=== PATIENT | male | born 1950 | race Caucasian/White ===

== ENCOUNTER 2017-09-19 12:51 | Inpatient (IN) | payer MEDICARE, MEDICAID ==
[2017-09-19 13:27] VITALS: BP 118/74
[2017-09-19] MEDS ORDERED: Maalox 30 mL Cup PO PRN (14:05)
[2017-09-19] MEDS ORDERED: Magnesium Hydroxide (MOM) 30 mL UDC PO PRN (14:05)
[2017-09-19] MEDS: INSULIN ASPART SLIDING SCALE 100 UNITS/ML UNIT SUBQ SCH ×2 (16:41→21:00)
[2017-09-19] MEDS: Multivitamin Tab PO SCH (17:44)
[2017-09-19 19:31] LABS: A1C % 11.7 % (4.0-6.0)
[2017-09-19] MEDS: Insulin Detemir 100 units/mL 10mL Vial SUBQ SCH (21:00)
[2017-09-19] MEDS: Atorvastatin Calcium 10 MG TAB PO SCH (21:34)
[2017-09-20] MEDS: INSULIN ASPART SLIDING SCALE 100 UNITS/ML UNIT SUBQ SCH ×4 (06:35→21:00)
[2017-09-20] MEDS: Levothyroxine 0.025 Mg Tab PO SCH (06:38)
--- NOTE | 2017-09-20 07:17 | Psychosocial Evaluation ---
DATE OF SERVICE: 09/19/2017 AGE: 66. SEX: Male. PHYSICIAN: Dr. Browning. CHIEF COMPLAINT: [id number] hold for dangerous to self. HISTORY OF PRESENT ILLNESS: The patient is status 66-year-old male who called 911 telling them that he is feeling suicidal and he overdosed on pills. Chart reviewed and patient interviewed. Also, discussed the patient's condition with the staff and reviewed records and labs. The patient admitted that he did take "Flagyl," unknown amount. The patient said that has been feeling hopeless and helpless and has been feeling lonely. The patient's is in the retirement for the last 2.5 years. He has been living alone since then. He is since 1998 and he has no children. The patient also is retired. The patient has history of bipolar disorder, but he denies any history of suicidal attempt, but he did have suicidal ideations in the past and he was hospitalized multiple times for treatment of bipolar disorder. The patient denies any drugs or any alcohol use. PAST PSYCHIATRIC HISTORY: The patient has a history of bipolar disorder with multiple psychiatric hospitalizations. The patient currently is taking Prozac. PAST MEDICAL HISTORY: The patient is insulin-dependent diabetic. Also, has COPD, hypertension, and arthritis, especially on his left shoulder and arm. FAMILY PSYCHIATRIC HISTORY: The patient is adopted and he does not know much about his biological family. SOCIAL HISTORY: The patient lives by himself. 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 He denies smoking cigarettes, drinking alcohol or using any street drugs. He denies any legal issues. He denies any history of sexual or physical abuse. ALLERGIES: PENICILLIN and GEMFIBROZIL. MENTAL STATUS EXAMINATION: The patient appears his stated age. Calm. Cooperative. Sad affect. In a depressed mood. Low tone and rate of speech. Poor eye contact. The patient denies any auditory or visual hallucinations, but seems to be slightly paranoid. The patient also occasionally talking to himself. The patient denies any current suicidal or homicidal ideations, although he admitted to overdose on pills. The patient is alert and oriented to time, place, person, and situation. Intact immediate, recent and remote memories. Fair insight. Poor judgment. He seems to be of average intelligence based on his verbal ability. ASSESSMENT: PRIMARY DIAGNOSIS: Bipolar disorder, severe, depressed episode, with psychotic features. MEDICAL DIAGNOSES: 1. Insulin-dependent diabetes mellitus. 2. Hypertension. 3. Chronic obstructive pulmonary disease. 4. Arthritis. TREATMENT PLAN: We will monitor the patient's behavior closely. We will continue Prozac and we will add Abilify and we will monitor the dose. ESTIMATED LENGTH OF STAY: 5-7 days. THE PATIENT'S STRENGTHS AND WEAKNESSES: The patient's strength is not clear at this time. Weaknesses is his ineffective coping. AFTER DISCHARGE PLAN: The patient will return to live with his place and outpatient treatment and followup will continue as an outpatient. CRITERIA FOR DISCHARGE: The patient will not be depressed or suicidal and will stabilize psychotropic medications and will establish outpatient treatment plans. [facility]# [id number]
--- NOTE | 2017-09-20 08:08 | Diagnostic Imaging Report ---
Portable chest x-ray HISTORY: Pain The overall heart size is normal. Atherosclerotic calcification seen in the aortic arch. No acute focal pulmonary processes. IMPRESSION: 1. No acute abnormalities 2. Atherosclerotic vascular changes
[2017-09-20] MEDS: Multivitamin Tab PO SCH (10:51)
[2017-09-20] MEDS: Atorvastatin Calcium 10 MG TAB PO SCH (22:00)
[2017-09-21] MEDS: Insulin Detemir 100 units/mL 10mL Vial SUBQ SCH ×2 (06:18→22:00)
[2017-09-21] MEDS: Levothyroxine 0.025 Mg Tab PO SCH (06:32)
[2017-09-21] MEDS: Multivitamin Tab PO SCH (10:11)
[2017-09-21] MEDS: INSULIN ASPART SLIDING SCALE 100 UNITS/ML UNIT SUBQ SCH ×3 (12:55→21:59)
--- NOTE | 2017-09-21 18:54 | Progress Notes ---
DATE: 09/21/2017 PSYCHIATRIC PROGRESS NOTE Chart reviewed and the patient interviewed. Also discussed the patient's condition with the staff and reviewed records and labs. The patient is still depressed. The patient also is still isolative and withdrawn. The patient also is guarded. He is still feeling lonely and he is still depressed, also slightly suspicious and paranoid. Otherwise, the patient is compliant with taking his medications and started to take Lexapro and Abilify yesterday. ASSESSMENT: The patient is still depressed. TREATMENT PLAN: We will continue monitoring his condition and behavior and working on his ineffective coping and follow up closely. [facility]# [id number]
[2017-09-21] MEDS: Atorvastatin Calcium 10 MG TAB PO SCH (22:00)
[2017-09-22] MEDS: INSULIN ASPART SLIDING SCALE 100 UNITS/ML UNIT SUBQ SCH ×3 (06:45→21:06)
[2017-09-22] MEDS: Levothyroxine 0.025 Mg Tab PO SCH (06:45)
[2017-09-22] MEDS: Multivitamin Tab PO SCH (09:59)
--- NOTE | 2017-09-22 11:31 | General Progress Note ---
Subjective - Review of Systems Events since last encounter: still depressed withdrawn denies pain Objective - Results Recent Labs: Laboratory Last Values POC Glucose 123 MG/DL (70 - 105) H 09/22/17 06:09 Hemoglobin A1c % 11.7 % (4.0-6.0) H 09/19/17 15:50 TSH 4.42 uIU/ml (0.34-5.60) 09/19/17 15:50 RPR NONREACTIVE (NONREACTIVE) 09/19/17 15:50 - Physical Exam Vitals and I&O: Vital Signs Temp 97.1 F 09/22/17 06:58 Pulse 72 09/22/17 09:59 Resp 20 09/22/17 06:58 BP 136/78 09/22/17 09:59 Pulse Ox 98 09/22/17 06:58 Intake & Output 09/21/17 09/22/17 09/22/17 18:59 06:59 18:59 Intake Total 120 120 Balance 120 120 Intake: Oral 120 120 Other: # Voids 2 2 # Bowel Movements 0 Stool Characteristics Soft Soft Active Medications: Current Medications Acetaminophen (Tylenol) 650 mg PO Q4HR PRN PRN Reason: Mild Pain / Temp above 100 Stop: 11/18/17 14:04 Al Hydrox/Mg Hydrox/Simethicone (Maalox) 30 ml PO Q4H PRN PRN Reason: GI DISTRESS Stop: 11/18/17 14:04 Aripiprazole (Abilify) 5 mg PO DAILY GAGE PRN Reason: Protocol Stop: 11/19/17 13:59 Last Admin: 09/22/17 09:59 Dose: 5 mg Aspirin (Ecotrin) 81 mg PO DAILY GAGE Stop: 11/19/17 08:59 Last Admin: 09/22/17 09:59 Dose: 81 mg Atorvastatin Calcium (Lipitor) 10 mg PO HS GAGE PRN Reason: Protocol Stop: 11/18/17 20:59 Last Admin: 09/21/17 22:00 Dose: 10 mg Carvedilol (Coreg) 3.125 mg PO BID GAGE Stop: 11/18/17 16:59 Last Admin: 09/22/17 09:59 Dose: 3.125 mg Fluoxetine HCl (Prozac) 20 mg PO DAILY GAGE PRN Reason: Protocol Stop: 11/19/17 08:59 Last Admin: 09/22/17 09:56 Dose: 20 mg Insulin Aspart (Novolog Insulin Sliding Scale) 0 units SUBQ ACHS GAGE PRN Reason: Protocol Stop: 11/18/17 16:29 Last Admin: 09/22/17 06:45 Dose: Not Given Insulin Detemir (Levemir Insulin) 30 units SUBQ HS GAGE Stop: 11/18/17 20:59 Last Admin: 09/21/17 22:00 Dose: 30 unit Levothyroxine Sodium (Synthroid) 0.05 mg PO QDAC GAGE Stop: 11/19/17 07:29 Last Admin: 09/22/17 06:45 Dose: 0.05 mg Lisinopril (Zestril) 10 mg PO BID GAGE Stop: 11/18/17 16:59 Last Admin: 09/22/17 09:56 Dose: 10 mg Lorazepam (Ativan) 0.5 mg PO Q4H PRN; Protocol PRN Reason: Anxiety Stop: 11/18/17 14:04 Last Admin: 09/21/17 12:55 Dose: 0.5 mg Magnesium Hydroxide (Milk Of Magnesia) 30 ml PO HS PRN PRN Reason: Constipation Multivitamins/Vitamin C (Theragran) 1 tab PO DAILY [facility] Stop: 11/18/17 14:59 Last Admin: 09/22/17 09:59 Dose: 1 tab Zolpidem Tartrate (Ambien) 5 mg PO HS PRN PRN Reason: Insomnia Stop: 11/18/17 20:59 Nutritional Asmnt/Malnutr-PDOC - Dietary Evaluation Malnutrition Findings (Please click <Entered> for more info): Nutritional Asmnt/Malnutrition Start: 09/20/17 12: 18 Text: Status: Active Freq: Document 09/20/17 12:18 [email or web address] (Rec: 09/20/17 12:27 [email or web address]) Nutritional Asmnt/Malnutrition Patient General Information Nutritional Screening Consult Diagnosis depression Pertinent Medical Hx/Surgical Hx bipolar, DM, COPD, HTN, arthritis Subjective Information Consult for DM. Pt depressed and confused. No meal intake since admit recorded. Current Diet Order/ Nutrition Support CCHO 60 gm Pertinent Medications insulin, synthroid, MOM, MVI Pertinent Labs glucose: 161-407, hgba1c: 11.7 Nutritional Hx/Data Height 1.68 m Height (Calculated Centimeters) 167.6 Current Weight (lbs) 77.111 kg Weight (Calculated Kilograms) 77.1 Weight (Calculated Grams) 13800.7 [place] Body Weight 142 lbs % [place] Body Weight 120 Body Mass Index (BMI) 27.4 Weight Status Overweight GI Symptoms GI Symptoms None Last BM [employer] Difficult in: None Skin Integrity/Comment: intact, no edema noted Estimated Nutritional Goals BEE in Kcals: Using Current wt Calories/Kcals/Kg 25-30 Kcals Calculated 0140-5196 Protein: Using Current wt Protein g/k-1.2 Protein Calculated 77-92 g Fluid: ml 8664-7838 mL (1 ml/kcal) Nutritional Problem 1. Problem Problem altered nutrition related lab values Etiology DM Signs/Symptoms: hgba1c: 11.7, POC glucose: 161 -407 Malnutrition Alert Is there a minimum of two criteria No selected? Query Text:Check all the applicable criteria. A minimum of two criteria are recommended for diagnosis of either severe or non-severe malnutrition. Malnutrition Related to Morbid Obesity Malnutrition related to morbid obesity No Intervention/Recommendation Recommendations by RD Dietary Education by RD1 Comments 1. Continue CCHO 60 gm diet for optimal glycemic control 2. Provide DM diet ed when pt more mentally appropriate Expected Outcomes/Goals Expected Outcomes/Goals goals: PO intake >50%, glucose : WNL monitor wt, labs, skin, PO intake, pt's readiness for diet ed
[2017-09-22] MEDS: Atorvastatin Calcium 10 MG TAB PO SCH (20:58)
[2017-09-22] MEDS: Insulin Detemir 100 units/mL 10mL Vial SUBQ SCH (21:08)
--- NOTE | 2017-09-22 22:09 | Progress Notes ---
DATE: 09/22/2017 SUBJECTIVE: Chart reviewed and the patient interviewed. Also discussed the patient's condition with the staff and reviewed records and labs. The patient remains in a depressed mood. The patient also is suspicious and paranoid. Also is still withdrawn, also did not sleep much, had only slept 5 hours. Also, continue to feel lonely. Otherwise, the patient is cooperative with treatment and compliant with treatment plans. ASSESSMENT: The patient is still depressed and high risk of suicide. TREATMENT PLAN: Continue to monitor his behavior and his condition closely. Also, continue working on his ineffective coping and discharge plans. Also, continue adjusting antidepressant medications. [facility]# [id number]
[2017-09-23] MEDS: Levothyroxine 0.025 Mg Tab PO SCH (06:40)
[2017-09-23] MEDS: INSULIN ASPART SLIDING SCALE 100 UNITS/ML UNIT SUBQ SCH ×4 (06:43→21:17)
--- NOTE | 2017-09-23 09:07 | Progress Notes ---
DATE: SUBJECTIVE: Chart reviewed and the patient interviewed. Also discussed the patient's condition with the staff and reviewed records and labs. The patient is anxious and is still depressed. Also, has difficulty sleeping at night and he is waking up in the middle of the night. He denies any bad dreams or nightmares. He still reports feeling depressed and is still feeling hopeless at times. Also, is isolative and seems to be preoccupied. Otherwise, the patient continued to take Prozac with no side effects. ASSESSMENT: The patient is still depressed. TREATMENT PLAN: We will continue to monitor his behavior and his condition closely. Also, we will increase Prozac to 40 mg every day and also will give trazodone in a dose of 50 mg at bedtime and continue to follow up his condition and continue to work on his ineffective coping. ESTIMATED LENGTH OF STAY: 2-4 days. LABS: No new labs available for review. REASON TO CONTINUE HOSPITAL STAY: The patient is still severely depressed and high risk suicide. [facility]# [id number]
[2017-09-23] MEDS: Multivitamin Tab PO SCH (11:10)
--- NOTE | 2017-09-23 13:24 | History and Physical ---
History of Present Illness - HPI Chief Complaint: AGITATION HPI: THIS IS A 67 YEAR OLD MALE WHO IS ADMITTED TO THE GEROPSYCH UNIT DUE TO DANGER TO SELF. Vital Signs: Last Vital Signs Temp 97.3 F 09/23/17 06:21 Pulse 68 09/23/17 11:09 Resp 18 09/23/17 06:21 BP 130/85 09/23/17 11:09 Pulse Ox 94 09/23/17 06:21 Past Medical History Other History: INSULIN DEPENDENT DIABETES MELLITUS HTN COPD ARTHRITIS Social History Smoke: 1 pack per day Alcohol: None Drugs: None Lives: Alone - Medications Home Medications: Home Medication Medication Instructions Recorded Type Aspirin [Adult Low Dose Aspirin EC] 81 mg PO DAILY 09/19/17 History Atorvastatin Calcium [Lipitor] 10 mg PO HS 09/19/17 History Carvedilol [Coreg] 3.125 mg PO BID 09/19/17 History Fluoxetine HCl [Prozac] 20 mg PO DAILY 09/19/17 History Insulin Glargine, Recombinan 30 units SUBQ HS 09/19/17 History [Lantus] Levothyroxine Sodium [Synthroid] 50 mcg PO AC 09/19/17 History Lisinopril 10 mg PO BID 09/19/17 History Memantine [Namenda] 5 mg PO BID 09/19/17 History - Allergies Allergies/Adverse Reactions: Allergies Allergy/AdvReac Type Severity Reaction Status Date / Time gemfibrozil Allergy Verified 09/19/17 13:26 Penicillins Allergy Verified 09/19/17 13:26 Review of Systems - Review of Systems Constitutional: Report: No Significant Eyes: Report: No Significant ENT: Report: No Significant Respiratory: Report: No Significant Cardiovascular: Report: No Significant Gastrointestinal: Report: No Significant Genitourinary: Report: No Significant Musculoskeletal: Report: No Significant Skin: Report: No Significant Neurological: Report: No Significant Physical Exam - Physical Exam HEENT: Report: Ears Nose Throat within normal limits Neck: Report: Within normal limits Cardiovascular Systems: Report: +s1/s2 noted, Regular, Rate and Rhythm Respiratory: Report: Breath Sounds are within normal limits Abdomen: Report: Non-tender to palpation Back: Report: Inspection of back is within normal limits. Extremities: Report: Non-tender to palpation. Skin: Report: Color of skin is within normal limits Neuro/Psych: Report: Mood affect is within normal limits - Lab Results All Lab Results last 24 hours: Laboratory Results - last 24 hr 09/22/17 09/22/17 09/23/17 17:20 20:29 06:28 POC Glucose 184 H 305 H 97 09/23/17 11:27 POC Glucose 316 H - Assessment Assessment: INSULIN DEPENDENT DIABETES MELLITUS HTN COPD ARTHRITIS - Plan Plan: ACCUCHECK AC+HS SLIDING SCALE PER PROTOCOL CONTINUE CURRENT PLAN OF CARE
[2017-09-23] MEDS: Insulin Detemir 100 units/mL 10mL Vial SUBQ SCH (21:16)
[2017-09-23] MEDS: Atorvastatin Calcium 10 MG TAB PO SCH (21:16)
[2017-09-24] MEDS: Levothyroxine 0.025 Mg Tab PO SCH (06:33)
[2017-09-24] MEDS: INSULIN ASPART SLIDING SCALE 100 UNITS/ML UNIT SUBQ SCH ×4 (06:34→20:36)
[2017-09-24] MEDS: Multivitamin Tab PO SCH (09:41)
--- NOTE | 2017-09-24 18:39 | Progress Notes ---
DATE: 09/24/2017 SUBJECTIVE: The patient was seen in his room. The patient appears to be paranoid, appears to be guarded. Denies any hallucination. Otherwise, the patient appears to be in no acute distress. OBJECTIVE: VITAL SIGNS: Temperature 97, heart rate of 98, blood pressure 134/67, respirations 20, and 99% on room air. HEENT: Head is atraumatic and normocephalic. Eyes: Bilateral conjunctivae are clear. Bilateral pupils are equally round and reactive. NECK: Supple. No JVD. CARDIOVASCULAR: S1 and S2, without murmur. PULMONARY: Clear to auscultation. GASTROINTESTINAL: Soft and nontender without guarding. Positive bowel sounds. MUSCULOSKELETAL: No clubbing. No cyanosis noted. ASSESSMENT: 1. Bipolar disorder. 2. Diabetes mellitus. 3. Hypertension. 4. Osteoarthritis. 5. Chronic obstructive pulmonary disease. PLAN: We will keep the patient inpatient Psychiatric Unit. We will follow up with the psychiatrist to monitor the patient's condition and behavior. Treatment plans were discussed with the patient's nurse. Treatment plans were discussed with Dr. Rahman. [facility]# [id number]
--- NOTE | 2017-09-24 20:15 | Progress Notes ---
DATE: The patient was seen and evaluated. The patient's chart reviewed. This is Dr. Valencia covering for Dr. Browning. He is a 67-year-old male who was brought in here after the patient reported feeling suicidal and he overdosed on pills. Over the course of the hospitalization, the patient still continues to be noted very depressed, isolative, withdrawn. Today on [id number] evaluation, the patient reports he is feeling very overwhelmed and very depressed with suicidal ideation. MENTAL: Psych. ASSESSMENT AND PLAN: The patient is a 67-year-old male likely terminal, distraught, overwhelmed. We will continue with Abilify 5 mg a day and Prozac 40 mg to target the patient's severe melancholic state, especially with recent suicide attempt. [facility]# [id number]
[2017-09-24] MEDS: Atorvastatin Calcium 10 MG TAB PO SCH (20:45)
[2017-09-24] MEDS: Insulin Detemir 100 units/mL 10mL Vial SUBQ SCH (20:50)
[2017-09-25] MEDS: Levothyroxine 0.025 Mg Tab PO SCH (06:37)
[2017-09-25] MEDS: INSULIN ASPART SLIDING SCALE 100 UNITS/ML UNIT SUBQ SCH ×3 (06:37→21:00)
--- NOTE | 2017-09-25 08:49 | General Progress Note ---
Subjective - Review of Systems Events since last encounter: patient seen and examined patient is anxious , confused in no distress Objective - Results Recent Labs: Laboratory Last Values POC Glucose 139 MG/DL (70 - 105) H 09/25/17 06:08 Hemoglobin A1c % 11.7 % (4.0-6.0) H 09/19/17 15:50 TSH 4.42 uIU/ml (0.34-5.60) 09/19/17 15:50 RPR NONREACTIVE (NONREACTIVE) 09/19/17 15:50 - Physical Exam Vitals and I&O: Vital Signs Temp 98.0 F 09/24/17 16:38 Pulse 81 09/24/17 16:55 Resp 20 09/24/17 16:38 BP 128/88 09/24/17 16:55 Pulse Ox 98 09/24/17 16:38 Intake & Output 09/24/17 09/25/17 09/25/17 18:59 06:59 18:59 Intake Total 800 Balance 800 Intake: Oral 800 Other: # Voids 3 # Bowel Movements 1 Stool Characteristics Soft Soft Active Medications: Current Medications Acetaminophen (Tylenol) 650 mg PO Q4HR PRN PRN Reason: Mild Pain / Temp above 100 Stop: 11/18/17 14:04 Last Admin: 09/24/17 16:54 Dose: 650 mg Al Hydrox/Mg Hydrox/Simethicone (Maalox) 30 ml PO Q4H PRN PRN Reason: GI DISTRESS Stop: 11/18/17 14:04 Aripiprazole (Abilify) 5 mg PO DAILY GAGE PRN Reason: Protocol Stop: 11/19/17 13:59 Last Admin: 09/24/17 09:40 Dose: 5 mg Aspirin (Ecotrin) 81 mg PO DAILY GAGE Stop: 11/19/17 08:59 Last Admin: 09/24/17 09:41 Dose: 81 mg Atorvastatin Calcium (Lipitor) 10 mg PO HS GAGE PRN Reason: Protocol Stop: 11/18/17 20:59 Last Admin: 09/24/17 20:45 Dose: 10 mg Carvedilol (Coreg) 3.125 mg PO BID GAGE Stop: 11/18/17 16:59 Last Admin: 09/24/17 16:55 Dose: 3.125 mg Fluoxetine HCl (Prozac) 40 mg PO DAILY GAGE PRN Reason: Protocol Stop: 11/22/17 07:14 Last Admin: 09/24/17 09:40 Dose: 40 mg Insulin Aspart (Novolog Insulin Sliding Scale) 0 units SUBQ ACHS GAGE PRN Reason: Protocol Stop: 11/18/17 16:29 Last Admin: 09/25/17 06:37 Dose: Not Given Insulin Detemir (Levemir Insulin) 30 units SUBQ HS GAGE Stop: 11/18/17 20:59 Last Admin: 09/24/17 20:50 Dose: 30 units Levothyroxine Sodium (Synthroid) 0.05 mg PO QDAC GAGE Stop: 11/19/17 07:29 Last Admin: 09/25/17 06:37 Dose: 0.05 mg Lisinopril (Zestril) 10 mg PO BID GAGE Stop: 11/18/17 16:59 Last Admin: 09/24/17 16:55 Dose: 10 mg Lorazepam (Ativan) 0.5 mg PO Q4H PRN; Protocol PRN Reason: Anxiety Stop: 11/18/17 14:04 Last Admin: 09/24/17 20:46 Dose: 0.5 mg Magnesium Hydroxide (Milk Of Magnesia) 30 ml PO HS PRN PRN Reason: Constipation Multivitamins/Vitamin C (Theragran) 1 tab PO DAILY GAGE Stop: 11/18/17 14:59 Last Admin: 09/24/17 09:41 Dose: 1 tab Trazodone HCl (Desyrel) 50 mg PO HS GAGE PRN Reason: Protocol Stop: 11/22/17 20:59 Last Admin: 09/24/17 20:52 Dose: 50 mg Zolpidem Tartrate (Ambien) 5 mg PO HS PRN PRN Reason: Insomnia Stop: 11/18/17 20:59 Last Admin: 09/24/17 20:47 Dose: 5 mg Nutritional Asmnt/Malnutr-PDOC - Dietary Evaluation Malnutrition Findings (Please click <Entered> for more info): Nutritional Asmnt/Malnutrition Start: 09/20/17 12: 18 Text: Status: Active Freq: Document 09/20/17 12:18 [email or web address] (Rec: 09/20/17 12:27 [email or web address]) Nutritional Asmnt/Malnutrition Patient General Information Nutritional Screening Consult Diagnosis depression Pertinent Medical Hx/Surgical Hx bipolar, DM, COPD, HTN, arthritis Subjective Information Consult for DM. Pt depressed and confused. No meal intake since admit recorded. Current Diet Order/ Nutrition Support CCHO 60 gm Pertinent Medications insulin, synthroid, MOM, MVI Pertinent Labs glucose: 161-407, hgba1c: 11.7 Nutritional Hx/Data Height 1.68 m Height (Calculated Centimeters) 167.6 Current Weight (lbs) 77.111 kg Weight (Calculated Kilograms) 77.1 Weight (Calculated Grams) 20320.7 [place] Body Weight 142 lbs % [place] Body Weight 120 Body Mass Index (BMI) 27.4 Weight Status Overweight GI Symptoms GI Symptoms None Last BM [employer] Difficult in: None Skin Integrity/Comment: intact, no edema noted Estimated Nutritional Goals BEE in Kcals: Using Current wt Calories/Kcals/Kg 25-30 Kcals Calculated 6080-8160 Protein: Using Current wt Protein g/k-1.2 Protein Calculated 77-92 g Fluid: ml 2709-3246 mL (1 ml/kcal) Nutritional Problem 1. Problem Problem altered nutrition related lab values Etiology DM Signs/Symptoms: hgba1c: 11.7, POC glucose: 161 -407 Malnutrition Alert Is there a minimum of two criteria No selected? Query Text:Check all the applicable criteria. A minimum of two criteria are recommended for diagnosis of either severe or non-severe malnutrition. Malnutrition Related to Morbid Obesity Malnutrition related to morbid obesity No Intervention/Recommendation Recommendations by RD Dietary Education by RD1 Comments 1. Continue CCHO 60 gm diet for optimal glycemic control 2. Provide DM diet ed when pt more mentally appropriate Expected Outcomes/Goals Expected Outcomes/Goals goals: PO intake >50%, glucose : WNL monitor wt, labs, skin, PO intake, pt's readiness for diet ed
[2017-09-25] MEDS: Multivitamin Tab PO SCH (09:18)
--- NOTE | 2017-09-25 19:14 | Progress Notes ---
DATE: SUBJECTIVE: The patient was seen and evaluated. The patient's chart reviewed. Today on [id number] evaluation, the patient reports that the depressive feelings tend to be little bit less intense and there are thoughts about hurting himself are also less and intermittent. MENTAL STATUS EXAMINATION: Less depressed, less anxious with intermittent SI with no improvement. ASSESSMENT AND PLAN: This is a 67-year-old male who continues to feel very psychologically distraught. We will continue with the recent addition of Abilify to his current doses of Prozac to target the patient's severe depression. [facility]# [id number]
[2017-09-25] MEDS: Insulin Detemir 100 units/mL 10mL Vial SUBQ SCH (21:00)
[2017-09-25] MEDS: Atorvastatin Calcium 10 MG TAB PO SCH (21:23)
[2017-09-26] MEDS: INSULIN ASPART SLIDING SCALE 100 UNITS/ML UNIT SUBQ SCH ×5 (06:38→21:39)
[2017-09-26] MEDS: Levothyroxine 0.025 Mg Tab PO SCH (06:39)
[2017-09-26] MEDS: Multivitamin Tab PO SCH (08:23)
--- NOTE | 2017-09-26 12:41 | Internal Medicine Prog Note ---
Internal Medicine Subjective - Subjective Service Date: 09/26/17 Patient seen and examined:: with staff Patient is:: awake, verbal Per staff patient has:: tolerating meds Internal Medicine Objective - Results Recent Labs: Laboratory Last Values POC Glucose 162 MG/DL (70 - 105) H 09/26/17 11:58 Hemoglobin A1c % 11.7 % (4.0-6.0) H 09/19/17 15:50 TSH 4.42 uIU/ml (0.34-5.60) 09/19/17 15:50 RPR NONREACTIVE (NONREACTIVE) 09/19/17 15:50 - Physical Exam Vitals and I&O: Vital Signs Temp 99.1 F 09/26/17 06:18 Pulse 83 09/26/17 08:24 Resp 18 09/26/17 06:18 BP 109/63 09/26/17 08:24 Pulse Ox 97 09/26/17 06:18 Intake & Output 09/25/17 09/26/17 09/26/17 18:59 06:59 18:59 Intake Total 1200 480 Balance 1200 480 Intake: Oral 1200 480 Other: # Voids 4 1 # Bowel Movements 1 Active Medications: Current Medications Acetaminophen (Tylenol) 650 mg PO Q4HR PRN PRN Reason: Mild Pain / Temp above 100 Stop: 11/18/17 14:04 Last Admin: 09/24/17 16:54 Dose: 650 mg Al Hydrox/Mg Hydrox/Simethicone (Maalox) 30 ml PO Q4H PRN PRN Reason: GI DISTRESS Stop: 11/18/17 14:04 Aripiprazole (Abilify) 5 mg PO DAILY [facility] PRN Reason: Protocol Stop: 11/19/17 13:59 Last Admin: 09/26/17 08:23 Dose: 5 mg Aspirin (Ecotrin) 81 mg PO DAILY [facility] Stop: 11/19/17 08:59 Last Admin: 09/26/17 08:23 Dose: 81 mg Atorvastatin Calcium (Lipitor) 10 mg PO HS [facility] PRN Reason: Protocol Stop: 11/18/17 20:59 Last Admin: 09/25/17 21:23 Dose: 10 mg Carvedilol (Coreg) 3.125 mg PO BID [facility] Stop: 11/18/17 16:59 Last Admin: 09/26/17 08:24 Dose: Not Given Fluoxetine HCl (Prozac) 40 mg PO DAILY [facility] PRN Reason: Protocol Stop: 11/22/17 07:14 Last Admin: 09/26/17 08:23 Dose: 40 mg Insulin Aspart (Novolog Insulin Sliding Scale) 0 units SUBQ ACHS [facility] PRN Reason: Protocol Stop: 11/18/17 16:29 Last Admin: 09/26/17 12:12 Dose: 2 units Insulin Detemir (Levemir Insulin) 30 units SUBQ HS [facility] Stop: 11/18/17 20:59 Last Admin: 09/25/17 21:00 Dose: 30 units Levothyroxine Sodium (Synthroid) 0.05 mg PO QDAC [facility] Stop: 11/19/17 07:29 Last Admin: 09/26/17 06:39 Dose: 0.05 mg Lisinopril (Zestril) 10 mg PO BID [facility] Stop: 11/18/17 16:59 Last Admin: 09/26/17 08:24 Dose: Not Given Lorazepam (Ativan) 0.5 mg PO Q4H PRN; Protocol PRN Reason: Anxiety Stop: 11/18/17 14:04 Last Admin: 09/24/17 20:46 Dose: 0.5 mg Magnesium Hydroxide (Milk Of Magnesia) 30 ml PO HS PRN PRN Reason: Constipation Multivitamins/Vitamin C (Theragran) 1 tab PO DAILY [facility] Stop: 11/18/17 14:59 Last Admin: 09/26/17 08:23 Dose: 1 tab Trazodone HCl (Desyrel) 50 mg PO HS [facility] PRN Reason: Protocol Stop: 11/22/17 20:59 Last Admin: 09/25/17 21:23 Dose: 50 mg Zolpidem Tartrate (Ambien) 5 mg PO HS PRN PRN Reason: Insomnia Stop: 11/18/17 20:59 Last Admin: 09/24/17 20:47 Dose: 5 mg General: weak, alert HEENT: NC/AT, PERRLA Neck: Supple Cardiovascular: RRR, Normal S1, Normal S2, without murmur Abdomen: soft, non-tender, non-distended, positive bowel sound Internal Medicine Assmt/Plan - Assessment Assessment: INSULIN DEPENDENT DIABETES MELLITUS HTN COPD ARTHRITIS - Plan Plan: SLIDING SCALE PER PROTOCOL CONTINUE CURRENT PLAN OF CARE Nutritional Asmnt/Malnutr-PDOC - Dietary Evaluation Malnutrition Findings (Please click <Entered> for more info): Nutritional Asmnt/Malnutrition Start: 09/20/17 12: 18 Text: Status: Active Freq: Document 09/20/17 12:18 [email or web address] (Rec: 09/20/17 12:27 [email or web address]) Nutritional Asmnt/Malnutrition Patient General Information Nutritional Screening Consult Diagnosis depression Pertinent Medical Hx/Surgical Hx bipolar, DM, COPD, HTN, arthritis Subjective Information Consult for DM. Pt depressed and confused. No meal intake since admit recorded. 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 Problem Problem altered nutrition related lab values Etiology DM Signs/Symptoms: hgba1c: 11.7, POC glucose: 161 -407 Malnutrition Alert Is there a minimum of two criteria No selected? Query Text:Check all the applicable criteria. A minimum of two criteria are recommended for diagnosis of either severe or non-severe malnutrition. Malnutrition Related to Morbid Obesity Malnutrition related to morbid obesity No Intervention/Recommendation Recommendations by RD Dietary Education by RD1 Comments 1. Continue CCHO 60 gm diet for optimal glycemic control 2. Provide DM diet ed when pt more mentally appropriate Expected Outcomes/Goals Expected Outcomes/Goals goals: PO intake >50%, glucose : WNL monitor wt, labs, skin, PO intake, pt's readiness for diet ed
[2017-09-26] MEDS: Atorvastatin Calcium 10 MG TAB PO SCH (21:27)
[2017-09-26] MEDS: Insulin Detemir 100 units/mL 10mL Vial SUBQ SCH (21:39)
--- NOTE | 2017-09-26 23:34 | Progress Notes ---
DATE: 09/26/[address] Browning. SUBJECTIVE: Case was discussed with staff of the patient, reviewed records. This is a 67-year-old male who was admitted on 09/19/2017. He called 911 telling them that he was feeling suicidal and he overdosed on pills. He overdosed on Flagyl, unknown amount. He said he is being feeling hopeless and helpless and has been feeling lonely. is in the [facility] for the past 2-1/2 years. He has been living alone since then. He is since 1998, has no children. He is retired. The patient with a history of bipolar disorder. He denies prior suicide attempts, but did have suicidal ideation in the past and he was hospitalized multiple times for treatment of bipolar disorder. Denies any substance abuse problem. The patient has been compliant with the medication with no side effect. The patient continues to be depressed, overwhelmed. He is on Prozac 40 mg a day and Abilify 5 mg daily with no side effects, no sedation, no nausea, no extrapyramidal symptoms. He continues to have thoughts of wanting to harm himself, but they are now intermittent and less intense. He is able to contract for safety while in the hospital. No side effects with the medication, no sedation, no nausea, no extrapyramidal symptoms. We will continue the patient in group therapy, milieu therapy and adjust the medication as needed. JOB# [id number]
[2017-09-27] MEDS: Levothyroxine 0.05 Mg Tab PO SCH (06:33)
[2017-09-27] MEDS: INSULIN ASPART SLIDING SCALE 100 UNITS/ML UNIT SUBQ SCH ×4 (06:33→21:36)
[2017-09-27] MEDS: Multivitamin Tab PO SCH (08:57)
--- NOTE | 2017-09-27 15:15 | Internal Medicine Prog Note ---
Internal Medicine Subjective - Subjective Service Date: 09/27/17 Patient is:: awake, verbal Per staff patient has:: tolerating meds Internal Medicine Objective - Results Recent Labs: Laboratory Last Values POC Glucose 193 MG/DL (70 - 105) H 09/27/17 11:46 Hemoglobin A1c % 11.7 % (4.0-6.0) H 09/19/17 15:50 TSH 4.42 uIU/ml (0.34-5.60) 09/19/17 15:50 RPR NONREACTIVE (NONREACTIVE) 09/19/17 15:50 - Physical Exam Vitals and I&O: Vital Signs Temp 96.8 F 09/27/17 06:31 Pulse 68 09/27/17 06:31 Resp 18 09/27/17 06:31 BP 135/84 09/27/17 06:31 Pulse Ox 97 09/27/17 06:31 Intake & Output 09/26/17 09/27/17 09/27/17 18:59 06:59 18:59 Intake Total 1000 240 Balance 1000 240 Intake: Oral 1000 240 Other: # Voids 4 3 # Bowel Movements 1 0 Stool Characteristics Soft Active Medications: Current Medications Acetaminophen (Tylenol) 650 mg PO Q4HR PRN PRN Reason: Mild Pain / Temp above 100 Stop: 11/18/17 14:04 Last Admin: 09/24/17 16:54 Dose: 650 mg Al Hydrox/Mg Hydrox/Simethicone (Maalox) 30 ml PO Q4H PRN PRN Reason: GI DISTRESS Stop: 11/18/17 14:04 Aripiprazole (Abilify) 5 mg PO DAILY [facility] PRN Reason: Protocol Stop: 11/19/17 13:59 Last Admin: 09/27/17 08:57 Dose: 5 mg Aspirin (Ecotrin) 81 mg PO DAILY [facility] Stop: 11/19/17 08:59 Last Admin: 09/27/17 08:57 Dose: 81 mg Atorvastatin Calcium (Lipitor) 10 mg PO HS [facility] PRN Reason: Protocol Stop: 11/18/17 20:59 Last Admin: 09/26/17 21:27 Dose: 10 mg Carvedilol (Coreg) 3.125 mg PO BID [facility] Stop: 11/18/17 16:59 Last Admin: 09/27/17 08:57 Dose: Not Given Fluoxetine HCl (Prozac) 40 mg PO DAILY [facility] PRN Reason: Protocol Stop: 11/22/17 07:14 Last Admin: 09/27/17 08:57 Dose: 40 mg Insulin Aspart (Novolog Insulin Sliding Scale) 0 units SUBQ ACHS [facility] PRN Reason: Protocol Stop: 11/18/17 16:29 Last Admin: 09/27/17 06:33 Dose: Not Given Insulin Detemir (Levemir Insulin) 30 units SUBQ HS [facility] Stop: 11/18/17 20:59 Last Admin: 09/26/17 21:39 Dose: 30 units Levothyroxine Sodium (Synthroid) 0.05 mg PO QDAC [facility] Stop: 11/26/17 07:29 Last Admin: 09/27/17 06:33 Dose: 0.05 mg Lisinopril (Zestril) 10 mg PO BID [facility] Stop: 11/18/17 16:59 Last Admin: 09/27/17 08:57 Dose: Not Given Lorazepam (Ativan) 0.5 mg PO Q4H PRN; Protocol PRN Reason: Anxiety Stop: 11/18/17 14:04 Last Admin: 09/24/17 20:46 Dose: 0.5 mg Magnesium Hydroxide (Milk Of Magnesia) 30 ml PO HS PRN PRN Reason: Constipation Multivitamins/Vitamin C (Theragran) 1 tab PO DAILY [facility] Stop: 11/18/17 14:59 Last Admin: 09/27/17 08:57 Dose: 1 tab Trazodone HCl (Desyrel) 50 mg PO HS [facility] PRN Reason: Protocol Stop: 11/22/17 20:59 Last Admin: 09/26/17 21:27 Dose: 50 mg General: weak, alert HEENT: NC/AT, PERRLA Neck: Supple Cardiovascular: RRR, Normal S1, Normal S2, without murmur Abdomen: soft, non-tender, non-distended, positive bowel sound Internal Medicine Assmt/Plan - Assessment Assessment: INSULIN DEPENDENT DIABETES MELLITUS HTN COPD ARTHRITIS - Plan Plan: SLIDING SCALE PER PROTOCOL CONTINUE CURRENT PLAN OF CARE Nutritional Asmnt/Malnutr-PDOC - Dietary Evaluation Malnutrition Findings (Please click <Entered> for more info): Nutritional Asmnt/Malnutrition Start: 09/20/17 12: 18 Text: Status: Complete Freq: Document 09/20/17 12:18 [email or web address] (Rec: 09/20/17 12:27 [email or web address]) Nutritional Asmnt/Malnutrition Patient General Information Nutritional Screening Consult Diagnosis depression Pertinent Medical Hx/Surgical Hx bipolar, DM, COPD, HTN, arthritis Subjective Information Consult for DM. Pt depressed and confused. No meal intake since admit recorded. 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 Problem Problem altered nutrition related lab values Etiology DM Signs/Symptoms: hgba1c: 11.7, POC glucose: 161 -407 Malnutrition Alert Is there a minimum of two criteria No selected? Query Text:Check all the applicable criteria. A minimum of two criteria are recommended for diagnosis of either severe or non-severe malnutrition. Malnutrition Related to Morbid Obesity Malnutrition related to morbid obesity No Intervention/Recommendation Recommendations by RD Dietary Education by RD1 Comments 1. Continue CCHO 60 gm diet for optimal glycemic control 2. Provide DM diet ed when pt more mentally appropriate Expected Outcomes/Goals Expected Outcomes/Goals goals: PO intake >50%, glucose : WNL monitor wt, labs, skin, PO intake, pt's readiness for diet ed
[2017-09-27] MEDS: Atorvastatin Calcium 10 MG TAB PO SCH (21:34)
[2017-09-27] MEDS: Insulin Detemir 100 units/mL 10mL Vial SUBQ SCH (21:35)
--- NOTE | 2017-09-27 22:14 | Progress Notes ---
DATE: 09/27/2017 Case was discussed with staff of the patient, reviewed records. Covering for Dr. Browning. The patient continues to be depressed, overwhelmed. He continues to be unpredictable and impulsive. Continues to be at times suicidal, but not as before. He is compliant with the medication with no side effects, sleeping better, eating better. No sedation, no nausea, no extrapyramidal symptoms. He is on Abilify 5 mg daily, Prozac 40 mg a day and trazodone 50 mg at bedtime. I will continue to work with the patient in group therapy, milieu therapy, and adjusting medications as needed. JOB# [id number]
[2017-09-28] MEDS: Levothyroxine 0.05 Mg Tab PO SCH (06:37)
[2017-09-28] MEDS: INSULIN ASPART SLIDING SCALE 100 UNITS/ML UNIT SUBQ SCH ×3 (06:37→21:13)
[2017-09-28] MEDS: Multivitamin Tab PO SCH (08:55)
--- NOTE | 2017-09-28 14:00 | Internal Medicine Prog Note ---
Internal Medicine Subjective - Subjective Service Date: 09/28/17 Patient is:: awake, verbal Per staff patient has:: tolerating meds Internal Medicine Objective - Results Recent Labs: Laboratory Last Values POC Glucose 274 MG/DL (70 - 105) H 09/27/17 21:31 Hemoglobin A1c % 11.7 % (4.0-6.0) H 09/19/17 15:50 TSH 4.42 uIU/ml (0.34-5.60) 09/19/17 15:50 RPR NONREACTIVE (NONREACTIVE) 09/19/17 15:50 - Physical Exam Vitals and I&O: Vital Signs Temp 97.2 F 09/28/17 06:09 Pulse 71 09/28/17 08:54 Resp 18 09/28/17 06:09 BP 141/82 09/28/17 08:54 Pulse Ox 99 09/28/17 06:09 Intake & Output 09/27/17 09/28/17 09/28/17 18:59 06:59 18:59 Intake Total 900 480 Balance 900 480 Intake: Oral 900 480 Other: # Voids 3 1 # Bowel Movements 1 Active Medications: Current Medications Acetaminophen (Tylenol) 650 mg PO Q4HR PRN PRN Reason: Mild Pain / Temp above 100 Stop: 11/18/17 14:04 Last Admin: 09/24/17 16:54 Dose: 650 mg Al Hydrox/Mg Hydrox/Simethicone (Maalox) 30 ml PO Q4H PRN PRN Reason: GI DISTRESS Stop: 11/18/17 14:04 Aripiprazole (Abilify) 5 mg PO DAILY [facility] PRN Reason: Protocol Stop: 11/19/17 13:59 Last Admin: 09/28/17 08:53 Dose: 5 mg Aspirin (Ecotrin) 81 mg PO DAILY [facility] Stop: 11/19/17 08:59 Last Admin: 09/28/17 08:54 Dose: 81 mg Atorvastatin Calcium (Lipitor) 10 mg PO HS [facility] PRN Reason: Protocol Stop: 11/18/17 20:59 Last Admin: 09/27/17 21:34 Dose: 10 mg Carvedilol (Coreg) 3.125 mg PO BID [facility] Stop: 11/18/17 16:59 Last Admin: 09/28/17 08:53 Dose: 3.125 mg Fluoxetine HCl (Prozac) 40 mg PO DAILY [facility] PRN Reason: Protocol Stop: 11/22/17 07:14 Last Admin: 09/28/17 08:53 Dose: 40 mg Insulin Aspart (Novolog Insulin Sliding Scale) 0 units SUBQ ACHS [facility] PRN Reason: Protocol Stop: 11/18/17 16:29 Last Admin: 09/28/17 06:47 Dose: Not Given Insulin Detemir (Levemir Insulin) 30 units SUBQ HS [facility] Stop: 11/18/17 20:59 Last Admin: 09/27/17 21:35 Dose: 30 units Levothyroxine Sodium (Synthroid) 0.05 mg PO QDAC [facility] Stop: 11/26/17 07:29 Last Admin: 09/28/17 06:37 Dose: 0.05 mg Lisinopril (Zestril) 10 mg PO BID [facility] Stop: 11/18/17 16:59 Last Admin: 09/28/17 08:54 Dose: 10 mg Lorazepam (Ativan) 0.5 mg PO Q4H PRN; Protocol PRN Reason: Anxiety Stop: 11/18/17 14:04 Last Admin: 09/24/17 20:46 Dose: 0.5 mg Magnesium Hydroxide (Milk Of Magnesia) 30 ml PO HS PRN PRN Reason: Constipation Multivitamins/Vitamin C (Theragran) 1 tab PO DAILY [facility] Stop: 11/18/17 14:59 Last Admin: 09/28/17 08:55 Dose: 1 tab Trazodone HCl (Desyrel) 50 mg PO HS [facility] PRN Reason: Protocol Stop: 11/22/17 20:59 Last Admin: 09/27/17 21:35 Dose: 50 mg Zolpidem Tartrate (Ambien) 5 mg PO HS PRN PRN Reason: Insomnia Stop: 11/27/17 10:24 General: weak, alert HEENT: NC/AT, PERRLA Neck: Supple Cardiovascular: RRR, Normal S1, Normal S2, without murmur Abdomen: soft, non-tender, non-distended, positive bowel sound Internal Medicine Assmt/Plan - Assessment Assessment: INSULIN DEPENDENT DIABETES MELLITUS HTN COPD ARTHRITIS - Plan Plan: SLIDING SCALE PER PROTOCOL CONTINUE CURRENT PLAN OF CARE Nutritional Asmnt/Malnutr-PDOC - Dietary Evaluation Malnutrition Findings (Please click <Entered> for more info): Nutritional Asmnt/Malnutrition Start: 09/20/17 12: 18 Text: Status: Complete Freq: Document 09/20/17 12:18 [email or web address] (Rec: 09/20/17 12:27 [email or web address]) Nutritional Asmnt/Malnutrition Patient General Information Nutritional Screening Consult Diagnosis depression Pertinent Medical Hx/Surgical Hx bipolar, DM, COPD, HTN, arthritis Subjective Information Consult for DM. Pt depressed and confused. No meal intake since admit recorded. 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 Problem Problem altered nutrition related lab values Etiology DM Signs/Symptoms: hgba1c: 11.7, POC glucose: 161 -407 Malnutrition Alert Is there a minimum of two criteria No selected? Query Text:Check all the applicable criteria. A minimum of two criteria are recommended for diagnosis of either severe or non-severe malnutrition. Malnutrition Related to Morbid Obesity Malnutrition related to morbid obesity No Intervention/Recommendation Recommendations by RD Dietary Education by RD1 Comments 1. Continue CCHO 60 gm diet for optimal glycemic control 2. Provide DM diet ed when pt more mentally appropriate Expected Outcomes/Goals Expected Outcomes/Goals goals: PO intake >50%, glucose : WNL monitor wt, labs, skin, PO intake, pt's readiness for diet ed
[2017-09-28] MEDS: Atorvastatin Calcium 10 MG TAB PO SCH (21:14)
[2017-09-28] MEDS: Insulin Detemir 100 units/mL 10mL Vial SUBQ SCH (21:15)
--- NOTE | 2017-09-28 21:37 | Progress Notes ---
DATE: SUBJECTIVE: Chart reviewed and the patient interviewed. Also, discussed the patient's condition with the staff and reviewed records and labs. The patient is less irritable and less agitated. He also is interacting more. The patient also denies any intention to harm himself or others. On the other hand still decisions in regard to discharge plans still not made yet. ASSESSMENT: The patient is depressed, but not suicidal. 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 We will continue to work on that and will continue to follow up. JOB# [id number]
[2017-09-29] MEDS: INSULIN ASPART SLIDING SCALE 100 UNITS/ML UNIT SUBQ SCH ×4 (06:34→21:00)
[2017-09-29] MEDS: Levothyroxine 0.05 Mg Tab PO SCH (06:34)
--- NOTE | 2017-09-29 09:06 | Discharge Summary ---
DATE OF DISCHARGE: 09/29/2017 DATE OF ADMISSION: 09/19/2017 DATE OF DISCHARGE: 09/29/2017 PATIENT'S AGE: 67. SEX: Male. PHYSICIAN: Itzel Browning M.D., M.P.H. FINAL DIAGNOSES: Major depression, severe, recurrent, without psychotic features. REASON FOR HOSPITALIZATION: The patient was admitted to the hospital because of increased depression and because of suicidal ideations. The patient was feeling lonely and he felt that there is no reason to live since his is in a [place] [facility]. The patient overdosed on unknown amount of pills and then called 911, told them that he is suicidal. HOSPITAL COURSE: The patient continued to be in a depressed mood. The patient also had sad affect. The patient was not suicidal or homicidal, but he have ineffective coping. The patient also was complaining of feeling weak and lack of energy and lack of motivations. He was started on Prozac. Gradually, the patient's affect was brighter. The patient was not suicidal or homicidal. The patient was discharged from the hospital and he was accepted to go to [facility]. The patient also was given Abilify in a small dose to help with the antidepressant medications. Also, Prozac was increased to 40 mg every day. Also, because the patient had difficulty sleeping at night, the patient was getting trazodone in a dose of 50 mg every bedtime. PHYSICAL EXAMINATION OF THE PATIENT: Showed the patient is diabetic hence was insulin-dependent. Also was complaining of generalized weakness and the patient sent to [facility] for rehabilitation. AFTER DISCHARGE PLANS: The patient discharged from the hospital to [place] with plans to continue his treatment there. EXPECTED OUTCOME AFTER DISCHARGE: Fair if the patient continues with his outpatient treatment and continue with his current medications. [facility]# [id number]
[2017-09-29] MEDS: Multivitamin Tab PO SCH (09:23)
--- NOTE | 2017-09-29 18:56 | Internal Medicine Prog Note ---
Internal Medicine Subjective - Subjective Patient is:: awake, verbal Per staff patient has:: tolerating meds Internal Medicine Objective - Results Recent Labs: Laboratory Last Values POC Glucose 164 MG/DL (70 - 105) H 09/29/17 16:45 Hemoglobin A1c % 11.7 % (4.0-6.0) H 09/19/17 15:50 TSH 4.42 uIU/ml (0.34-5.60) 09/19/17 15:50 RPR NONREACTIVE (NONREACTIVE) 09/19/17 15:50 - Physical Exam Vitals and I&O: Vital Signs Temp 97.4 F 09/29/17 15:01 Pulse 86 09/29/17 15:01 Resp 20 09/29/17 15:01 BP 117/68 09/29/17 15:01 Pulse Ox 96 09/29/17 15:01 Intake & Output 09/28/17 09/29/17 09/29/17 18:59 06:59 18:59 Intake Total 4877 841 1226 Balance 0473 654 3661 Intake: Oral 9643 113 0469 Other: # Voids 3 3 3 # Bowel Movements 1 Active Medications: Current Medications Acetaminophen (Tylenol) 650 mg PO Q4HR PRN PRN Reason: Mild Pain / Temp above 100 Stop: 11/18/17 14:04 Last Admin: 09/24/17 16:54 Dose: 650 mg Al Hydrox/Mg Hydrox/Simethicone (Maalox) 30 ml PO Q4H PRN PRN Reason: GI DISTRESS Stop: 11/18/17 14:04 Aripiprazole (Abilify) 5 mg PO DAILY GAGE PRN Reason: Protocol Stop: 11/19/17 13:59 Last Admin: 09/29/17 09:22 Dose: 5 mg Aspirin (Ecotrin) 81 mg PO DAILY GAGE Stop: 11/19/17 08:59 Last Admin: 09/29/17 09:22 Dose: 81 mg Atorvastatin Calcium (Lipitor) 10 mg PO HS GAGE PRN Reason: Protocol Stop: 11/18/17 20:59 Last Admin: 09/28/17 21:14 Dose: 10 mg Carvedilol (Coreg) 3.125 mg PO BID GAGE Stop: 11/18/17 16:59 Last Admin: 09/29/17 17:16 Dose: Not Given Fluoxetine HCl (Prozac) 40 mg PO DAILY GAGE PRN Reason: Protocol Stop: 11/22/17 07:14 Last Admin: 09/29/17 09:22 Dose: 40 mg Insulin Aspart (Novolog Insulin Sliding Scale) 0 units SUBQ ACHS GAGE PRN Reason: Protocol Stop: 11/18/17 16:29 Last Admin: 09/29/17 17:50 Dose: 2 units Insulin Detemir (Levemir Insulin) 30 units SUBQ HS GAGE Stop: 11/18/17 20:59 Last Admin: 09/28/17 21:15 Dose: 30 units Levothyroxine Sodium (Synthroid) 0.05 mg PO QDAC GAGE Stop: 11/26/17 07:29 Last Admin: 09/29/17 06:34 Dose: 0.05 mg Lisinopril (Zestril) 10 mg PO BID GAGE Stop: 11/18/17 16:59 Last Admin: 09/29/17 17:16 Dose: Not Given Lorazepam (Ativan) 0.5 mg PO Q4H PRN; Protocol PRN Reason: Anxiety Stop: 11/18/17 14:04 Last Admin: 09/29/17 09:23 Dose: 0.5 mg Magnesium Hydroxide (Milk Of Magnesia) 30 ml PO HS PRN PRN Reason: Constipation Multivitamins/Vitamin C (Theragran) 1 tab PO DAILY [facility] Stop: 11/18/17 14:59 Last Admin: 09/29/17 09:23 Dose: 1 tab Trazodone HCl (Desyrel) 50 mg PO HS GAGE PRN Reason: Protocol Stop: 11/22/17 20:59 Last Admin: 09/28/17 21:15 Dose: 50 mg Zolpidem Tartrate (Ambien) 5 mg PO HS PRN PRN Reason: Insomnia Stop: 11/27/17 10:24 General: weak, alert HEENT: NC/AT, PERRLA Neck: Supple Cardiovascular: RRR, Normal S1, Normal S2, without murmur Abdomen: soft, non-tender, non-distended, positive bowel sound Nutritional Asmnt/Malnutr-PDOC - Dietary Evaluation Malnutrition Findings (Please click <Entered> for more info): Nutritional Asmnt/Malnutrition Start: 09/20/17 12: 18 Text: Status: Complete Freq: Document 09/20/17 12:18 [email or web address] (Rec: 09/20/17 12:27 [email or web address]) Nutritional Asmnt/Malnutrition Patient General Information Nutritional Screening Consult Diagnosis depression Pertinent Medical Hx/Surgical Hx bipolar, DM, COPD, HTN, arthritis Subjective Information Consult for DM. Pt depressed and confused. No meal intake since admit recorded. 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 Problem Problem altered nutrition related lab values Etiology DM Signs/Symptoms: hgba1c: 11.7, POC glucose: 161 -407 Malnutrition Alert Is there a minimum of two criteria No selected? Query Text:Check all the applicable criteria. A minimum of two criteria are recommended for diagnosis of either severe or non-severe malnutrition. Malnutrition Related to Morbid Obesity Malnutrition related to morbid obesity No Intervention/Recommendation Recommendations by RD Dietary Education by RD1 Comments 1. Continue CCHO 60 gm diet for optimal glycemic control 2. Provide DM diet ed when pt more mentally appropriate Expected Outcomes/Goals Expected Outcomes/Goals goals: PO intake >50%, glucose : WNL monitor wt, labs, skin, PO intake, pt's readiness for diet ed
[2017-09-29] MEDS: Atorvastatin Calcium 10 MG TAB PO SCH (20:12)
[2017-09-29] MEDS: Insulin Detemir 100 units/mL 10mL Vial SUBQ SCH (20:32)
[2017-09-30] MEDS: Levothyroxine 0.05 Mg Tab PO SCH (07:00)
[2017-09-30] MEDS: INSULIN ASPART SLIDING SCALE 100 UNITS/ML UNIT SUBQ SCH ×4 (07:57→21:01)
[2017-09-30] MEDS: Multivitamin Tab PO SCH (08:37)
--- NOTE | 2017-09-30 16:32 | General Progress Note ---
Objective - Results Recent Labs: Laboratory Last Values POC Glucose 229 MG/DL (70 - 105) H 09/30/17 12:02 Hemoglobin A1c % 11.7 % (4.0-6.0) H 09/19/17 15:50 TSH 4.42 uIU/ml (0.34-5.60) 09/19/17 15:50 RPR NONREACTIVE (NONREACTIVE) 09/19/17 15:50 - Physical Exam Vitals and I&O: Vital Signs Temp 97.5 F 09/30/17 15:13 Pulse 83 09/30/17 16:03 Resp 18 09/30/17 15:24 BP 120/72 09/30/17 16:03 Pulse Ox 97 09/30/17 15:13 Intake & Output 09/29/17 09/30/17 09/30/17 18:59 06:59 18:59 Intake Total 1200 120 Balance 1200 120 Intake: Oral 1200 120 Other: # Voids 3 3 Active Medications: Current Medications Acetaminophen (Tylenol) 650 mg PO Q4HR PRN PRN Reason: Mild Pain / Temp above 100 Stop: 11/18/17 14:04 Last Admin: 09/24/17 16:54 Dose: 650 mg Al Hydrox/Mg Hydrox/Simethicone (Maalox) 30 ml PO Q4H PRN PRN Reason: GI DISTRESS Stop: 11/18/17 14:04 Aripiprazole (Abilify) 5 mg PO DAILY GAGE PRN Reason: Protocol Stop: 11/19/17 13:59 Last Admin: 09/30/17 08:38 Dose: 5 mg Aspirin (Ecotrin) 81 mg PO DAILY GAGE Stop: 11/19/17 08:59 Last Admin: 09/30/17 08:37 Dose: 81 mg Atorvastatin Calcium (Lipitor) 10 mg PO HS GAGE PRN Reason: Protocol Stop: 11/18/17 20:59 Last Admin: 09/29/17 20:12 Dose: 10 mg Carvedilol (Coreg) 3.125 mg PO BID GAGE Stop: 11/18/17 16:59 Last Admin: 09/30/17 16:03 Dose: 3.125 mg Fluoxetine HCl (Prozac) 40 mg PO DAILY GAGE PRN Reason: Protocol Stop: 11/22/17 07:14 Last Admin: 09/30/17 08:37 Dose: 40 mg Insulin Aspart (Novolog Insulin Sliding Scale) 0 units SUBQ ACHS GAGE PRN Reason: Protocol Stop: 11/18/17 16:29 Last Admin: 09/30/17 12:11 Dose: 4 units Insulin Detemir (Levemir Insulin) 30 units SUBQ HS GAGE Stop: 11/18/17 20:59 Last Admin: 09/29/17 20:32 Dose: 30 units Levothyroxine Sodium (Synthroid) 0.05 mg PO QDAC GAGE Stop: 11/26/17 07:29 Last Admin: 09/30/17 07:00 Dose: 0.05 mg Lisinopril (Zestril) 10 mg PO BID GAGE Stop: 11/18/17 16:59 Last Admin: 09/30/17 16:02 Dose: 10 mg Lorazepam (Ativan) 0.5 mg PO Q4H PRN; Protocol PRN Reason: Anxiety Stop: 11/18/17 14:04 Last Admin: 09/29/17 09:23 Dose: 0.5 mg Magnesium Hydroxide (Milk Of Magnesia) 30 ml PO HS PRN PRN Reason: Constipation Multivitamins/Vitamin C (Theragran) 1 tab PO DAILY GAGE Stop: 11/18/17 14:59 Last Admin: 09/30/17 08:37 Dose: 1 tab Trazodone HCl (Desyrel) 50 mg PO HS GAGE PRN Reason: Protocol Stop: 11/22/17 20:59 Last Admin: 09/29/17 20:12 Dose: 50 mg Zolpidem Tartrate (Ambien) 5 mg PO HS PRN PRN Reason: Insomnia Stop: 11/27/17 10:24 Nutritional Asmnt/Malnutr-PDOC - Dietary Evaluation Malnutrition Findings (Please click <Entered> for more info): Nutritional Asmnt/Malnutrition Start: 09/20/17 12: 18 Text: Status: Complete Freq: Document 09/20/17 12:18 [email or web address] (Rec: 09/20/17 12:27 [email or web address]) Nutritional Asmnt/Malnutrition Patient General Information Nutritional Screening Consult Diagnosis depression Pertinent Medical Hx/Surgical Hx bipolar, DM, COPD, HTN, arthritis Subjective Information Consult for DM. Pt depressed and confused. No meal intake since admit recorded. 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 Problem Problem altered nutrition related lab values Etiology DM Signs/Symptoms: hgba1c: 11.7, POC glucose: 161 -407 Malnutrition Alert Is there a minimum of two criteria No selected? Query Text:Check all the applicable criteria. A minimum of two criteria are recommended for diagnosis of either severe or non-severe malnutrition. Malnutrition Related to Morbid Obesity Malnutrition related to morbid obesity No Intervention/Recommendation Recommendations by RD Dietary Education by RD1 Comments 1. Continue CCHO 60 gm diet for optimal glycemic control 2. Provide DM diet ed when pt more mentally appropriate Expected Outcomes/Goals Expected Outcomes/Goals goals: PO intake >50%, glucose : WNL monitor wt, labs, skin, PO intake, pt's readiness for diet ed
[2017-09-30] MEDS: Atorvastatin Calcium 10 MG TAB PO SCH (21:25)
[2017-09-30] MEDS: Insulin Detemir 100 units/mL 10mL Vial SUBQ SCH (21:25)
--- NOTE | 2017-09-30 22:29 | Progress Notes ---
DATE: 09/30/2017 Case was discussed with staff of the patient, reviewed records. Covering for Dr. Browning. The patient was supposed to have been discharged yesterday; however, he did go, he has a placement issue. He is doing better, sleeping well, eating well. No suicidal ideation, no homicidal ideation, no paranoia. So the staff is working on placement. No side effects with the medications, sedation, nausea, or extrapyramidal symptoms. So we can try to place this patient. Start the patient with group therapy, milieu therapy, and adjust medications as needed. JOB# [id number]
[2017-10-01] MEDS: INSULIN ASPART SLIDING SCALE 100 UNITS/ML UNIT SUBQ SCH ×4 (06:33→21:21)
[2017-10-01] MEDS: Levothyroxine 0.05 Mg Tab PO SCH (06:34)
[2017-10-01] MEDS: Multivitamin Tab PO SCH (09:08)
--- NOTE | 2017-10-01 12:32 | General Progress Note ---
Subjective - Review of Systems Events since last encounter: no distress Objective - Results Recent Labs: Laboratory Last Values POC Glucose 95 MG/DL (70 - 105) 10/01/17 05:30 Hemoglobin A1c % 11.7 % (4.0-6.0) H 09/19/17 15:50 TSH 4.42 uIU/ml (0.34-5.60) 09/19/17 15:50 RPR NONREACTIVE (NONREACTIVE) 09/19/17 15:50 - Physical Exam Vitals and I&O: Vital Signs Temp 97.5 F 09/30/17 15:13 Pulse 70 10/01/17 09:17 Resp 20 10/01/17 08:00 BP 136/85 10/01/17 09:17 Pulse Ox 97 09/30/17 15:13 Intake & Output 09/30/17 10/01/17 10/01/17 18:59 06:59 18:59 Intake Total 1200 Balance 1200 Intake: Oral 1200 Other: # Voids 3 Active Medications: Current Medications Acetaminophen (Tylenol) 650 mg PO Q4HR PRN PRN Reason: Mild Pain / Temp above 100 Stop: 11/18/17 14:04 Last Admin: 09/24/17 16:54 Dose: 650 mg Al Hydrox/Mg Hydrox/Simethicone (Maalox) 30 ml PO Q4H PRN PRN Reason: GI DISTRESS Stop: 11/18/17 14:04 Aripiprazole (Abilify) 5 mg PO DAILY GAGE PRN Reason: Protocol Stop: 11/19/17 13:59 Last Admin: 10/01/17 09:08 Dose: 5 mg Aspirin (Ecotrin) 81 mg PO DAILY GAGE Stop: 11/19/17 08:59 Last Admin: 10/01/17 09:08 Dose: 81 mg Atorvastatin Calcium (Lipitor) 10 mg PO HS GAGE PRN Reason: Protocol Stop: 11/18/17 20:59 Last Admin: 09/30/17 21:25 Dose: 10 mg Carvedilol (Coreg) 3.125 mg PO BID GAGE Stop: 11/18/17 16:59 Last Admin: 10/01/17 09:08 Dose: 3.125 mg Fluoxetine HCl (Prozac) 40 mg PO DAILY GAGE PRN Reason: Protocol Stop: 11/22/17 07:14 Last Admin: 10/01/17 09:15 Dose: 40 mg Insulin Aspart (Novolog Insulin Sliding Scale) 0 units SUBQ ACHS GAGE PRN Reason: Protocol Stop: 11/18/17 16:29 Last Admin: 10/01/17 06:33 Dose: Not Given Insulin Detemir (Levemir Insulin) 30 units SUBQ HS GAGE Stop: 11/18/17 20:59 Last Admin: 09/30/17 21:25 Dose: 30 units Levothyroxine Sodium (Synthroid) 0.05 mg PO QDAC GAGE Stop: 11/26/17 07:29 Last Admin: 10/01/17 06:34 Dose: 0.05 mg Lisinopril (Zestril) 10 mg PO BID GAGE Stop: 11/18/17 16:59 Last Admin: 10/01/17 09:17 Dose: 10 mg Lorazepam (Ativan) 0.5 mg PO Q4H PRN; Protocol PRN Reason: Anxiety Stop: 11/18/17 14:04 Last Admin: 10/01/17 10:08 Dose: 0.5 mg Magnesium Hydroxide (Milk Of Magnesia) 30 ml PO HS PRN PRN Reason: Constipation Multivitamins/Vitamin C (Theragran) 1 tab PO DAILY [facility] Stop: 11/18/17 14:59 Last Admin: 10/01/17 09:08 Dose: 1 tab Trazodone HCl (Desyrel) 50 mg PO HS GAGE PRN Reason: Protocol Stop: 11/22/17 20:59 Last Admin: 09/30/17 21:25 Dose: 50 mg Zolpidem Tartrate (Ambien) 5 mg PO HS PRN PRN Reason: Insomnia Stop: 11/27/17 10:24 Nutritional Asmnt/Malnutr-PDOC - Dietary Evaluation Malnutrition Findings (Please click <Entered> for more info): Nutritional Asmnt/Malnutrition Start: 09/20/17 12: 18 Text: Status: Complete Freq: Document 09/20/17 12:18 [email or web address] (Rec: 09/20/17 12:27 [email or web address]) Nutritional Asmnt/Malnutrition Patient General Information Nutritional Screening Consult Diagnosis depression Pertinent Medical Hx/Surgical Hx bipolar, DM, COPD, HTN, arthritis Subjective Information Consult for DM. Pt depressed and confused. No meal intake since admit recorded. 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 Problem Problem altered nutrition related lab values Etiology DM Signs/Symptoms: hgba1c: 11.7, POC glucose: 161 -407 Malnutrition Alert Is there a minimum of two criteria No selected? Query Text:Check all the applicable criteria. A minimum of two criteria are recommended for diagnosis of either severe or non-severe malnutrition. Malnutrition Related to Morbid Obesity Malnutrition related to morbid obesity No Intervention/Recommendation Recommendations by RD Dietary Education by RD1 Comments 1. Continue CCHO 60 gm diet for optimal glycemic control 2. Provide DM diet ed when pt more mentally appropriate Expected Outcomes/Goals Expected Outcomes/Goals goals: PO intake >50%, glucose : WNL monitor wt, labs, skin, PO intake, pt's readiness for diet ed
--- NOTE | 2017-10-01 15:45 | Progress Notes ---
DATE: 10/01/2017 Case was discussed with staff of the patient, reviewed records. The patient was supposed to have been discharged, however, no place was found for him. He is sleeping well, eating well. He denies any current intent to harm himself or anybody. Denies any auditory or visual hallucinations or paranoia. Denies any side effects and working on discharge plan and finding placement for this patient and we will continue to work with the patient in group therapy, milieu therapy, adjust medication as needed. JOB# [id number]
[2017-10-01] MEDS: Atorvastatin Calcium 10 MG TAB PO SCH (21:15)
[2017-10-01] MEDS: Insulin Detemir 100 units/mL 10mL Vial SUBQ SCH (21:21)
[2017-10-02] MEDS: Levothyroxine 0.05 Mg Tab PO SCH (06:46)
[2017-10-02] MEDS: INSULIN ASPART SLIDING SCALE 100 UNITS/ML UNIT SUBQ SCH ×4 (06:46→21:08)
[2017-10-02] MEDS: Multivitamin Tab PO SCH (09:10)
--- NOTE | 2017-10-02 13:47 | General Progress Note ---
Subjective - Review of Systems Events since last encounter: no distress awake alert Objective - Results Recent Labs: Laboratory Last Values POC Glucose 116 MG/DL (70 - 105) H 10/02/17 06:04 Hemoglobin A1c % 11.7 % (4.0-6.0) H 09/19/17 15:50 TSH 4.42 uIU/ml (0.34-5.60) 09/19/17 15:50 RPR NONREACTIVE (NONREACTIVE) 09/19/17 15:50 - Physical Exam Vitals and I&O: Vital Signs Temp 97.3 F 10/02/17 06:28 Pulse 63 10/02/17 09:11 Resp 18 10/02/17 08:00 BP 111/68 10/02/17 09:11 Pulse Ox 92 10/02/17 06:28 Intake & Output 10/01/17 10/02/17 10/02/17 18:59 06:59 18:59 Intake Total 1200 Balance 1200 Intake: Oral 1200 Other: # Voids 3 # Bowel Movements 1 Active Medications: Current Medications Acetaminophen (Tylenol) 650 mg PO Q4HR PRN PRN Reason: Mild Pain / Temp above 100 Stop: 11/18/17 14:04 Last Admin: 10/02/17 09:10 Dose: 650 mg Al Hydrox/Mg Hydrox/Simethicone (Maalox) 30 ml PO Q4H PRN PRN Reason: GI DISTRESS Stop: 11/18/17 14:04 Aripiprazole (Abilify) 5 mg PO DAILY GAGE PRN Reason: Protocol Stop: 11/19/17 13:59 Last Admin: 10/02/17 09:11 Dose: 5 mg Aspirin (Ecotrin) 81 mg PO DAILY GAGE Stop: 11/19/17 08:59 Last Admin: 10/02/17 09:12 Dose: 81 mg Atorvastatin Calcium (Lipitor) 10 mg PO HS GAGE PRN Reason: Protocol Stop: 11/18/17 20:59 Last Admin: 10/01/17 21:15 Dose: 10 mg Carvedilol (Coreg) 3.125 mg PO BID GAGE Stop: 11/18/17 16:59 Last Admin: 10/02/17 09:10 Dose: 3.125 mg Fluoxetine HCl (Prozac) 40 mg PO DAILY GAGE PRN Reason: Protocol Stop: 11/22/17 07:14 Last Admin: 10/02/17 09:10 Dose: 40 mg Insulin Aspart (Novolog Insulin Sliding Scale) 0 units SUBQ ACHS GAGE PRN Reason: Protocol Stop: 11/18/17 16:29 Last Admin: 10/02/17 11:19 Dose: 4 units Insulin Detemir (Levemir Insulin) 30 units SUBQ HS GAGE Stop: 11/18/17 20:59 Last Admin: 10/01/17 21:21 Dose: 30 units Levothyroxine Sodium (Synthroid) 0.05 mg PO QDAC GAGE Stop: 11/26/17 07:29 Last Admin: 10/02/17 06:46 Dose: 0.05 mg Lisinopril (Zestril) 10 mg PO BID [facility] Stop: 11/18/17 16:59 Last Admin: 10/02/17 09:11 Dose: 10 mg Lorazepam (Ativan) 0.5 mg PO Q4H PRN; Protocol PRN Reason: Anxiety Stop: 11/18/17 14:04 Last Admin: 10/01/17 10:08 Dose: 0.5 mg Magnesium Hydroxide (Milk Of Magnesia) 30 ml PO HS PRN PRN Reason: Constipation Multivitamins/Vitamin C (Theragran) 1 tab PO DAILY [facility] Stop: 11/18/17 14:59 Last Admin: 10/02/17 09:10 Dose: 1 tab Trazodone HCl (Desyrel) 50 mg PO HS GAGE PRN Reason: Protocol Stop: 11/22/17 20:59 Last Admin: 10/01/17 21:15 Dose: 50 mg Zolpidem Tartrate (Ambien) 5 mg PO HS PRN PRN Reason: Insomnia Stop: 11/27/17 10:24 Nutritional Asmnt/Malnutr-PDOC - Dietary Evaluation Malnutrition Findings (Please click <Entered> for more info): Nutritional Asmnt/Malnutrition Start: 09/20/17 12: 18 Text: Status: Complete Freq: Document 09/20/17 12:18 [email or web address] (Rec: 09/20/17 12:27 [email or web address]) Nutritional Asmnt/Malnutrition Patient General Information Nutritional Screening Consult Diagnosis depression Pertinent Medical Hx/Surgical Hx bipolar, DM, COPD, HTN, arthritis Subjective Information Consult for DM. Pt depressed and confused. No meal intake since admit recorded. 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 Problem Problem altered nutrition related lab values Etiology DM Signs/Symptoms: hgba1c: 11.7, POC glucose: 161 -407 Malnutrition Alert Is there a minimum of two criteria No selected? Query Text:Check all the applicable criteria. A minimum of two criteria are recommended for diagnosis of either severe or non-severe malnutrition. Malnutrition Related to Morbid Obesity Malnutrition related to morbid obesity No Intervention/Recommendation Recommendations by RD Dietary Education by RD1 Comments 1. Continue CCHO 60 gm diet for optimal glycemic control 2. Provide DM diet ed when pt more mentally appropriate Expected Outcomes/Goals Expected Outcomes/Goals goals: PO intake >50%, glucose : WNL monitor wt, labs, skin, PO intake, pt's readiness for diet ed
[2017-10-02] MEDS: Atorvastatin Calcium 10 MG TAB PO SCH (20:57)
[2017-10-02] MEDS: Insulin Detemir 100 units/mL 10mL Vial SUBQ SCH (21:09)
--- NOTE | 2017-10-02 22:28 | Progress Notes ---
DATE: 10/02/[address] Browning. Case was discussed with staff of the patient, reviewed records. The patient seems to be doing better, sleeping well, eating well. Working on placement for this patient. He is compliant with the medication with no side effects, no sedation, no nausea, no extrapyramidal symptoms. He was supposed to have been discharged on Tuesday; however, no placement was willing to take him. He seems to be stable and ready to go to a lesser level of care. We will continue outpatient group therapy, milieu therapy, adjust medication as needed. JOB# [id number]
[2017-10-03] MEDS: Levothyroxine 0.05 Mg Tab PO SCH (06:33)
[2017-10-03] MEDS: INSULIN ASPART SLIDING SCALE 100 UNITS/ML UNIT SUBQ SCH ×3 (06:45→16:52)
[2017-10-03] MEDS: Multivitamin Tab PO SCH (09:26)
--- NOTE | 2017-10-03 09:39 | General Progress Note ---
Subjective - Review of Systems Events since last encounter: in no distress still confused Objective - Results Recent Labs: Laboratory Last Values POC Glucose 81 MG/DL (70 - 105) 10/03/17 06:05 Hemoglobin A1c % 11.7 % (4.0-6.0) H 09/19/17 15:50 TSH 4.42 uIU/ml (0.34-5.60) 09/19/17 15:50 RPR NONREACTIVE (NONREACTIVE) 09/19/17 15:50 - Physical Exam Vitals and I&O: Vital Signs Temp 97.3 F 10/03/17 06:16 Pulse 76 10/03/17 09:26 Resp 20 10/03/17 06:16 BP 143/94 10/03/17 09:26 Pulse Ox 98 10/03/17 06:16 Intake & Output 10/02/17 10/03/17 10/03/17 18:59 06:59 18:59 Intake Total 1000 600 Balance 1000 600 Intake: Oral 1000 600 Other: # Voids 4 2 # Bowel Movements 1 1 Stool Characteristics Soft Active Medications: Current Medications Acetaminophen (Tylenol) 650 mg PO Q4HR PRN PRN Reason: Mild Pain / Temp above 100 Stop: 11/18/17 14:04 Last Admin: 10/02/17 09:10 Dose: 650 mg Al Hydrox/Mg Hydrox/Simethicone (Maalox) 30 ml PO Q4H PRN PRN Reason: GI DISTRESS Stop: 11/18/17 14:04 Aripiprazole (Abilify) 5 mg PO DAILY GAGE PRN Reason: Protocol Stop: 11/19/17 13:59 Last Admin: 10/03/17 09:25 Dose: 5 mg Aspirin (Ecotrin) 81 mg PO DAILY GAGE Stop: 11/19/17 08:59 Last Admin: 10/03/17 09:26 Dose: 81 mg Atorvastatin Calcium (Lipitor) 10 mg PO HS GAGE PRN Reason: Protocol Stop: 11/18/17 20:59 Last Admin: 10/02/17 20:57 Dose: 10 mg Carvedilol (Coreg) 3.125 mg PO BID GAGE Stop: 11/18/17 16:59 Last Admin: 10/03/17 09:25 Dose: 3.125 mg Fluoxetine HCl (Prozac) 40 mg PO DAILY GAGE PRN Reason: Protocol Stop: 11/22/17 07:14 Last Admin: 10/03/17 09:30 Dose: 40 mg Insulin Aspart (Novolog Insulin Sliding Scale) 0 units SUBQ ACHS GAGE PRN Reason: Protocol Stop: 11/18/17 16:29 Last Admin: 10/03/17 06:45 Dose: Not Given Insulin Detemir (Levemir Insulin) 30 units SUBQ HS GAGE Stop: 11/18/17 20:59 Last Admin: 10/02/17 21:09 Dose: 30 units Levothyroxine Sodium (Synthroid) 0.05 mg PO QDAC GAGE Stop: 11/26/17 07:29 Last Admin: 10/03/17 06:33 Dose: 0.05 mg Lisinopril (Zestril) 10 mg PO BID GAGE Stop: 11/18/17 16:59 Last Admin: 10/03/17 09:26 Dose: 10 mg Lorazepam (Ativan) 0.5 mg PO Q4H PRN; Protocol PRN Reason: Anxiety Stop: 11/18/17 14:04 Last Admin: 10/01/17 10:08 Dose: 0.5 mg Magnesium Hydroxide (Milk Of Magnesia) 30 ml PO HS PRN PRN Reason: Constipation Multivitamins/Vitamin C (Theragran) 1 tab PO DAILY [facility] Stop: 11/18/17 14:59 Last Admin: 10/03/17 09:26 Dose: 1 tab Trazodone HCl (Desyrel) 50 mg PO HS GAGE PRN Reason: Protocol Stop: 11/22/17 20:59 Last Admin: 10/02/17 20:57 Dose: 50 mg Zolpidem Tartrate (Ambien) 5 mg PO HS PRN PRN Reason: Insomnia Stop: 11/27/17 10:24 Nutritional Asmnt/Malnutr-PDOC - Dietary Evaluation Malnutrition Findings (Please click <Entered> for more info): Nutritional Asmnt/Malnutrition Start: 09/20/17 12: 18 Text: Status: Complete Freq: Document 09/20/17 12:18 [email or web address] (Rec: 09/20/17 12:27 [id number]) Nutritional Asmnt/Malnutrition Patient General Information Nutritional Screening Consult Diagnosis depression Pertinent Medical Hx/Surgical Hx bipolar, DM, COPD, HTN, arthritis Subjective Information Consult for DM. Pt depressed and confused. No meal intake since admit recorded. Current Diet Order/ Nutrition Support CCHO 60 gm Pertinent Medications insulin, synthroid, MOM, MVI Pertinent Labs glucose: 161-407, hgba1c: 11.7 Nutritional Hx/Data Height 1.68 m Height (Calculated Centimeters) 167.6 Current Weight (lbs) 77.111 kg Weight (Calculated Kilograms) 77.1 Weight (Calculated Grams) 23712.7 [place] Body Weight 142 lbs % Gonzales Body Weight 120 Body Mass Index (BMI) 27.4 Weight Status Overweight GI Symptoms GI Symptoms None Last BM [employer] Difficult in: None Skin Integrity/Comment: intact, no edema noted Estimated Nutritional Goals BEE in Kcals: Using Current wt Calories/Kcals/Kg 25-30 Kcals Calculated 5787-7483 Protein: Using Current wt Protein g/k-1.2 Protein Calculated 77-92 g Fluid: ml 1098-0746 mL (1 ml/kcal) Nutritional Problem 1. Problem Problem altered nutrition related lab values Etiology DM Signs/Symptoms: hgba1c: 11.7, POC glucose: 161 -407 Malnutrition Alert Is there a minimum of two criteria No selected? Query Text:Check all the applicable criteria. A minimum of two criteria are recommended for diagnosis of either severe or non-severe malnutrition. Malnutrition Related to Morbid Obesity Malnutrition related to morbid obesity No Intervention/Recommendation Recommendations by RD Dietary Education by RD1 Comments 1. Continue CCHO 60 gm diet for optimal glycemic control 2. Provide DM diet ed when pt more mentally appropriate Expected Outcomes/Goals Expected Outcomes/Goals goals: PO intake >50%, glucose : WNL monitor wt, labs, skin, PO intake, pt's readiness for diet ed
--- NOTE | 2017-10-03 23:05 | Discharge Summary ---
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 REASON FOR HOSPITALIZATION: The patient was admitted to the hospital because of increased depression and suicidal ideations. HOSPITAL COURSE: The patient continued to feel severely depressed. The patient was feeling "lonely". He said his was admitted to a long term because of dementia and deterioration of her condition and then he has been struggling with depression and lonely feeling. He had lack of energy and lack of motivations. The patient also was quite suspicious and paranoid. The patient was started on Lexapro at a dose of 20 mg everyday. Gradually, the patient's affect was brighter. The patient was less depressed. He also denied any intention to harm himself or others. The patient was also complaining of feeling weak. He was compliant with taking his medications. It was recommended that the patient should get some physical therapy. The patient was accepted in [facility] and the patient was discharged there. Physical exam of the patient showed the patient had no major medical issues or acute problems. He was having generalized weakness and the patient went to [facility] to work on his rehabilitation and . AFTER DISCHARGE PLANS: The patient discharged from the hospital to [facility] with plans to follow up him there. EXPECTED OUTCOME AFTER DISCHARGE: Fair if the patient continues with outpatient treatment and follow up with discharge plans. JOB# [id number]
== END 2017-10-03 19:15 | DRG 885 ==
LOC: GERO 12:51
PROVIDERS: ADMIT Psychiatry & Neurology Psychiatry; ATTEND Psychiatry & Neurology Psychiatry
DX: F31.5 Bipolar disorder, current episode depressed, severe, with psychotic features (principal); J44.9 Chronic obstructive pulmonary disease, unspecified; E11.9 Type 2 diabetes mellitus without complications; T37.3X2A Poisoning by other antiprotozoal drugs, intentional self-harm, initial encounter; F17.210 Nicotine dependence, cigarettes, uncomplicated; I10 Essential (primary) hypertension; M19.012 Primary osteoarthritis, left shoulder; Z88.0 Allergy status to penicillin; Z79.4 Long term (current) use of insulin; Z88.8 Allergy status to other drugs, medicaments and biological substances; Y92.89 Other specified places as the place of occurrence of the external cause
CPT/HCPCS: 36415-UA; 71045-TC; 82948-90; 83036-90; 84443-TC; 86592-TC; 90899; G0410; J1815; Z7610